=== PATIENT | female | born 1980 | race Caucasian/White ===

== ENCOUNTER 2016-09-18 21:13 | Emergency (ER) | payer OTHER ==
[~2016-09-18 21:13] MED LIST: BENADRYL PO; CIPRO PO; FLOMAX0.4 M1 DOB; LISINOPRIL10 MG PO; NORCO 10/3251 TAB PO; NUVARING V1 VAG.RING VG; ZESTRIL10 M1 PO; ZOFRAN ODT4 MG PO; ZOFRAN PO; ZOLOFT50 MG PO
[2016-09-18] MEDS ORDERED: FLEXERIL (21:27)
[2016-09-18 22:39] LABS: URINE SOURCE CLEAN CATCH
[2016-09-18 22:41] LABS: URINE APPEARANCE HAZY; URINE BILIRUBIN NEG (NEG); URINE BLOOD NEG (NEG); URINE COLOR YELLOW; URINE GLUCOSE NEG (NORM); URINE KETONE NEG (NEG); URINE LEUKOCYTE ESTERASE NEG (NEG); URINE NITRATE NEG (NEG); URINE PROTEIN NEG (NEG); URINE SPECIFIC GRAVITY 1.015 (1.003-1.035); URINE UROBILINOGEN 0.2 MG/DL (NORM)
[2016-09-18 22:42] LABS: MICRO INDICATED? NO
== END 2016-09-18 23:48 | disposition home or self-care (01) ==
LOC: SED 21:13
PROVIDERS: Nurse Practitioner
DX: M54.41 Lumbago with sciatica, right side (principal); I10 Essential (primary) hypertension; F17.210 Nicotine dependence, cigarettes, uncomplicated
CPT/HCPCS: 81003; 84703; 96372; 99283; J1885

== ENCOUNTER 2017-01-10 12:16 | Emergency (ER) | payer OTHER ==
[~2017-01-10 12:16] MED LIST changes: +FLEXERIL
[2017-01-10 14:22] LABS: BASOPHIL# 0.1 X10e3 (0-0.3); BASOPHIL% 1.2 % (0-2.5); EOSINOPHIL# 0.1 X10e3 (0-0.7); HEMATOCRIT 44.6 % (35.0-45.0); HEMOGLOBIN 15.2 gm/dL (12.0-16.0); LYMPHOCYTE# 1.7 X10e3 (1.0-3.5); LYMPHOCYTE% 22.8 % (17.0-45.0); MEAN CELL VOLUME 88.8 FL (83-96); MEAN CORPUSCULAR HEMOGLOBIN 30.3 PG (28-34); MEAN CORPUSCULAR HGB CONC 34.1 g/dL (30-36); MEAN PLATELET VOLUME 7.3 FL (6.5-11.5); MONOCYTE# 0.5 X10e3 (0-1.0); MONOCYTE% 6.4 % (3.0-12.0); NEUTROPHIL% 68.6 % (40-75); PLATELET COUNT 277 X10e3 (140-420); RED BLOOD COUNT 5.02 X10e (3.90-5.30); RED CELL DISTRIBUTION WIDTH 13.4 % (11.0-15.5); WHITE BLOOD COUNT 7.3 X10e3 (4.0-10.5)
[2017-01-10 14:24] LABS: DIFF IND NO
[2017-01-10 14:38] LABS: BUN/CREATININE RATIO 17.5; CREATININE SERUM 0.8 mg/dL (0.6-1.4); GLOM FILT RATE Estimated 96.3 mL/min (>60); POTASSIUM 3.8 mmol/L (3.5-5.1)
== END 2017-01-10 15:03 | disposition home or self-care (01) ==
LOC: SED 12:16
PROVIDERS: Nurse Practitioner Family
DX: L02.511 Cutaneous abscess of right hand (principal); Z88.8 Allergy status to other drugs, medicaments and biological substances; Z79.899 Other long term (current) drug therapy
CPT/HCPCS: 36415; 80048; 85025; 87070; 87077; 87186; 87205; 99283